=== PATIENT | male | born 1955 | race Caucasian/White ===

== ENCOUNTER 2017-01-17 20:38 | Inpatient (IN) | payer BC ==
[2017-01-17] MEDS ORDERED: Aspirin 81 MG Tab.Chew ONE (21:05)
[2017-01-17] MEDS ORDERED: Sodium Chloride 0.9% 5 ML Syringe FLUSH PRN (21:06)
[2017-01-17 21:35] LABS: CHLORIDE,CL 104 mmol/L (98-115); SODIUM,NA 141 mmol/L (136-145)
[2017-01-17] MEDS ORDERED: Diltiazem 25 MG/5 ML SDV IVPUSH ONE (21:49)
[2017-01-17] MEDS ORDERED: Enoxaparin 40 MG/0.4 ML Syringe SUBCUT ONE (22:08)
--- NOTE | 2017-01-17 22:12 | EDM.PDOC ---
ED HISTORY OF PRESENT ILLNESS - General Chief Complaint: Chest Pain Stated Complaint: RAPID HEART RATE Time Seen by Provider: 01/17/17 21:00 Source of Information: Reports: Patient History Limitations: Reports: No limitations - History of Present Illness INITIAL COMMENTS - FREE TEXT/NARRATIVE: PT STATES HE WAS SEEN ON TUESDAY AT [facility] FOR EPIGASTRIC DISCOMFORT. EKG PERFORMED AND PT GIVEN PRILOSEC FOR GERD. SAT AND TUESDAY HE FELT WEAK AND SOB WITH EXERTION. THIS EVENING FELT LIKE HIS HEART WAS RACING SO PRESENTED TO ER. DENIES CP, BUSTAMANTE, N/V/D, URI SYMPTOMS, OR FEVER. Symptom Onset Date: 01/17/17 Timing/Duration: Reports: Hour(s): Severity: mild Location, General: Reports: chest Improves with: Reports: None Worsens with: Reports: Movement Context, General: Reports: Activity Associated Symptoms (General): Reports: shortness of breath Treatments OPERATOR CONTROL ROOM: Reports: Aspirin - Related Data Allergies/ADRs: Allergies Allergy/AdvReac Type Severity Reaction Status Date / Time No Known Drug Allergies Allergy Cannot Verified 01/17/17 20:50 Remember Home Meds: Home Meds Omeprazole Magnesium [Prilosec Otc] 20 mg PO DAILY 01/17/17 [History] Social & Family History - Tobacco Use Smoking Status *Q: Never Smoker Second Hand Smoke Exposure: No - Caffeine Use Caffeine Use: Reports: Coffee - Recreational Drug Use Recreational Drug Use: No ED ROS GENERAL - Review of Systems Review Of Systems: ROS reveals no pertinent complaints other than HPI. Constitutional: Reports: no symptoms HEENT: Reports: No symptoms Respiratory: Reports: shortness of breath Cardiovascular: Reports: Palpitations Endocrine: Reports: no symptoms GI/Abdominal: Reports: No symptoms : Reports: no symptoms Musculoskeletal: Reports: no symptoms Skin: Reports: no symptoms Neurological: Reports: no symptoms Psychiatric: Reports: No symptoms Hematologic/Lymphatic: Reports: no symptoms Immunologic: Reports: no symptoms ED EXAM, GENERAL - Physical Exam Exam: See Below Exam Limited By: No limitations General Appearance: alert, WD/WN, no apparent distress Eye Exam: bilateral eye: normal inspection Nose: normal inspection, normal mucosa, no blood Throat/Mouth: Normal inspection, Normal oropharynx, No airway compromise Head: atraumatic, normocephalic Neck: normal inspection, supple, non-tender Respiratory/Chest: no respiratory distress, lungs clear, normal breath sounds, no accessory muscle use, chest non-tender Cardiovascular: tachycardia. No: irregularly irregular GI/Abdominal: normal bowel sounds, soft, non tender, no abnormal bruit, no mass Back Exam: normal inspection. No: CVA tenderness (L), CVA tenderness (R) Extremities: normal inspection, no pedal edema Neurological: alert, oriented, CN II-XII intact, normal cognition, no motor/ sensory deficits Psychiatric: normal affect, normal mood Skin Exam: Warm, Dry, Intact, Normal color, No rash Lymphatic: no adenopathy ED CARDIOLOGY PROCEDURES - Additional/Other Procedure(s) Other (Free Text) Procedure(s): CAROTID MASSAGE WAS PERFORMED X 2. EACH TIME HR WENT FROM 140'S TO 70'S BUT RETURNED TO 140'S WITHIN 20 SECONDS EKG INTERPRETATION EKG Date: 01/17/17 Time: 21:15 Rhythm: other (TACHYCARDIA) Rate (beats/min): 146 QRS: wide Comparison: change from previous EKG EKG Interpretation Comments: SUSPECTED UNDERLYING ATRIAL FLUTTER Course - Vital Signs Last Recorded V/S: Last Vital Signs Temp 97.5 F 01/17/17 20:45 Pulse 145 H 01/17/17 21:19 Resp 14 01/17/17 21:19 BP 133/92 H 01/17/17 21:19 Pulse Ox 96 01/17/17 21:19 - Orders/Labs/Meds Orders: Active Orders 24 hr Category Date Time Status EKG Documentation Completion [RC] ASDIRECTED Care 01/17/17 21:06 Active Chest 1V Frontal [CR] Stat Exams 01/17/17 20:53 Taken CMP [COMPREHENSIVE METABOLIC PN,CMP] [CHEM] Stat Lab 01/17/17 20:55 Received INR,PT,PROTHROMBIN TIME [COAG] Stat Lab 01/17/17 20:55 Received MAGNESIUM [CHEM] Stat Lab 01/17/17 20:55 Received PTT,PARTIAL THROMBOPLSTIN TIME [COAG] Stat Lab 01/17/17 20:55 Received TROPONIN I [CHEM] Stat Lab 01/17/17 20:55 Received Sodium Chloride 0.9% [Syrex Flush] Med 01/17/17 21:06 Active 5 ml FLUSH Q8HR PRN Saline Lock Insert [OM.PC] Routine Oth 01/17/17 20:50 Ordered EKG 12 Lead [EK] Routine Ther 01/17/17 21:05 Ordered Medication Orders Sodium Chloride (Syrex Flush) 5 ml FLUSH Q8HR PRN PRN Reason: Keep Vein Open Labs: Laboratory Tests 01/17/17 Range/Units 20:55 WBC 3.1 L (5.0-10.0) 10^3/uL RBC 5.07 (4.50-6.00) 10^6/uL Hgb 14.8 (13.0-17.0) g/dL Hct 44.4 (40.0-52.0) % MCV 87.5 (82.0-92.0) fL MCH 29.1 (27.0-31.0) pg MCHC 33.3 (32.0-36.0) g/dL RDW 12.3 (11.5-14.5) % Plt Count 349 H (150-300) 10^3/uL MPV 7.3 L (7.4-10.4) fL Neut % (Auto) 37.7 L (50.0-70.0) % Lymph % (Auto) 41.9 H (20.0-40.0) % [place] % (Auto) 16.5 H (2.0-8.0) % Eos % (Auto) 3.0 (1.0-3.0) % Baso % (Auto) 0.9 (0.0-1.0) % Neut # 1.2 L (2.5-7.0) 10^3/uL Lymph # 1.3 (1.0-4.0) 10^3/uL [place] # 0.5 (0.1-0.8) 10^3/uL Eos # 0.1 (0.1-0.3) 10^3/uL Baso # 0.0 (0.0-0.1) 10^3/uL Meds: Medications Generic Name Dose Route Start Last Admin Trade Name Freq PRN Reason Stop Dose Admin Sodium Chloride 5 ml 01/17/17 21:06 Syrex Flush FLUSH Q8HR PRN Keep Vein Open Discontinued Medications Generic Name Dose Route Start Last Admin Trade Name Freq PRN Reason Stop Dose Admin Aspirin Confirm 01/17/17 21:05 Aspirin Administered 01/17/17 21:06 Dose 324 mg .ROUTE .STK-MED ONE - Radiology Interpretation Free Text/Narrative:: CXR NEGATIVE FOR ACUTE PROCESS - Re-Assessments/Exams Free Text/Narrative Re-Assessment/Exam: 01/17/17 22:[address] CABRAL, TO[facility] CUTTER PINION AT [facility]. HE VIEWED ECG'S AND SUGGESTED DILTIAZEM FOR RATE CONTROL. DISCUSSED CASE WITH DR COELLO, WILL ADMIT INPATIENT TO HIS SERVICE Departure - Departure Time of Disposition: 22:23 Disposition: Admitted As Inpatient 65 Condition: fair Clinical Impression: Tachycardia with heart rate 141-160 beats per minute, Atrial flutter by electrocardiogram Forms: ED Department Discharge - My Orders Last 24 Hours: My Active Orders 01/17/17 20:50 Saline Lock Insert [OM.PC] Routine 01/17/17 20:53 Chest 1V Frontal [CR] Stat 01/17/17 20:55 CMP [COMPREHENSIVE METABOLIC PN,CMP] [CHEM] Stat INR,PT,PROTHROMBIN TIME [COAG] Stat MAGNESIUM [CHEM] Stat PTT,PARTIAL THROMBOPLSTIN TIME [COAG] Stat TROPONIN I [CHEM] Stat 01/17/17 21:05 EKG 12 Lead [EK] Routine 01/17/17 21:06 EKG Documentation Completion [RC] ASDIRECTED Sodium Chloride 0.9% [Syrex Flush] 5 ml FLUSH Q8HR PRN - Assessment/Plan Last 24 Hours: My Active Orders 01/17/17 20:50 Saline Lock Insert [OM.PC] Routine 01/17/17 20:53 Chest 1V Frontal [CR] Stat 01/17/17 20:55 CMP [COMPREHENSIVE METABOLIC PN,CMP] [CHEM] Stat INR,PT,PROTHROMBIN TIME [COAG] Stat MAGNESIUM [CHEM] Stat PTT,PARTIAL THROMBOPLSTIN TIME [COAG] Stat TROPONIN I [CHEM] Stat 01/17/17 21:05 EKG 12 Lead [EK] Routine 01/17/17 21:06 EKG Documentation Completion [RC] ASDIRECTED Sodium Chloride 0.9% [Syrex Flush] 5 ml FLUSH Q8HR PRN Assessment:: ATRIAL FIBRILLATION Plan: ADMIT INPATIENT
[2017-01-17] MEDS ORDERED: Metoprolol Tartrate 25 MG Tab PO ONE ×2 (22:15→23:05)
[2017-01-17] MEDS ORDERED: Diltiazem 125 MG in Sodium Chloride 0.9% 100 ML IV SCH (22:15)
[2017-01-18] MEDS ORDERED: Omeprazole 20 MG Cap.CR PO SCH (09:00)
[2017-01-18] MEDS ORDERED: Atropine 0.1 MG/ML 10 ML Syringe IVPUSH PRN (10:03)
[2017-01-18] MEDS ORDERED: EPINEPHrine 1:10,000 1 MG/10 ML Syringe IVPUSH PRN (10:03)
[2017-01-18] MEDS ORDERED: Lidocaine 2% 100 MG/5 ML Syringe IVPUSH PRN (10:03)
[2017-01-18] MEDS ORDERED: Nitroglycerin 0.4 MG Tab.SL SL PRN (10:03)
--- NOTE | 2017-01-18 11:24 | PCM.HP ---
H&P History of Present Illness - General Date of Service: 01/18/17 Source of Information: Patient, Old records, Significant Other History Limitations: Reports: No limitations - History of Present Illness Initial Comments - Free Text/Narative: This 61-year-old gentleman was admitted through the emergency department last night due to her rapid heart rate. He states he was recently seen in [facility] to some GI epigastric discomfort and was recently placed on PPI therapy for this for possible GERD. The patient's symptoms initially began with having some pressure or pain on the left side of his neck which seemed to move down into his epigastric stomach causing him an ache worse when he bent over that does not seem to be relieved by rest and he also has had a loss of appetite. Yesterday he states he was doing some light work shoveling some light snow and help and some son move some lumbar then he noticed he was quite short of breath and easily fatigued and he took his heart rate and he states his heart rate was in the 140s. He took a total of 162 mg of aspirin yesterday because he thought he was having a heart attack. Patient states he is generalize healthy and up to recently he has not seen a physician or any medical care for about 10 years. He has not been on any medication until he was recently placed on Prilosec. He states he has no family history of any cardiac issues (however does have RBBB--chronic) other than cancer in the stomach in his father. He denied any chest pains headaches nausea vomiting or diarrhea or recent cold-like symptoms. Patient's workup in the ED did include EKG which initially showed atrial fibrillation with rapid ventricular response around 140 last night which responded to both IV and oral calcium channel blockers and metoprolol eventually converting him into a sinus rhythm. Chest x-ray shows no edema or pneumonia. He was placed in CCU throughout the night on telemetry. Epigastric Pain Score (Numeric/FACES): 1 - Related Data Allergies/Adverse Reactions: Allergies Allergy/AdvReac Type Severity Reaction Status Date / Time No Known Drug Allergies Allergy Cannot Verified 01/17/17 20:50 Remember Home Medications: Home Meds Omeprazole Magnesium [Prilosec Otc] 20 mg PO DAILY 01/17/17 [History] Past Medical History Cardiovascular History: Reports: Other (see below) Other Cardiovascular History: 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 Gastrointestinal History: Reports: GERD, Other (see below) Other Gastrointestinal History: med for it for past 2 days - Past Surgical History Cardiovascular Surgical History: Reports: None Social & Family History - Family History HEENT: Reports: None Cardiac: Reports: None Respiratory: Reports: None GI: Reports: None : Reports: None OBGYN: Reports: None Musculoskeletal: Reports: None Neurological: Reports: None Psychiatric: Reports: None Endocrine/Metabolic: Reports: None Hematologic: Reports: None Immunologic: Reports: None Dermatologic: Reports: None Oncologic: Reports: Other (see below) (Her father of GI cancer) - Tobacco Use Smoking Status *Q: Never Smoker Second Hand Smoke Exposure: No - Caffeine Use Caffeine Use: Reports: Coffee - Recreational Drug Use Recreational Drug Use: No H&P Review of Systems - Review of Systems: Review Of Systems: See Below General: Reports: decreased appetite. Denies: weight loss HEENT: Reports: no symptoms Pulmonary: Denies: Pleuritic Chest Pain Cardiovascular: Reports: no symptoms Gastrointestinal: Reports: Decreased appetite, Other (mild epigastic pain). Denies: Diarrhea, Difficulty swallowing Genitourinary: Reports: no symptoms Musculoskeletal: Reports: no symptoms Skin: Reports: no symptoms Psychiatric: Reports: no symptoms Neurological: Reports: No Symptoms Hematologic/Lymphatic: Reports: no symptoms Immunologic: Reports: no symptoms Exam - Exam Exam: See Below - Vital Signs Vital Signs: Last Vital Signs Temp 97.3 F 01/18/17 07:00 Pulse 55 L 01/18/17 07:00 Resp 18 01/18/17 07:00 BP 105/60 01/18/17 07:00 Pulse Ox 97 01/18/17 07:00 Weight: 158 lb 6.4 oz - Exam Quality Assessment: No: supplemental oxygen General: alert, oriented, 4 HEENT: Hearing intact, Mucosa moist & pink Neck: supple, trachea midline, 2 Lungs: Clear to auscultation, Normal respiratory effort Cardiovascular: normal S1, normal S2, bradycardia. No: irregular rhythm Abdomen: normal bowel sounds, soft (Male) Exam: Deferred Rectal (Males) Exam: Deferred Back Exam: No: CVA tenderness (L), CVA tenderness (R) Extremities: normal pulses. No: edema Peripheral Pulses: 2+: radial (R), femoral (L) Skin: warm, dry, intact Neurological: cranial nerves intact, reflexes equal bilateral Neuro Extensive - Mental Status: alert, oriented x3, normal mood/affect, normal cognition Neuro Extensive - Motor, Sensory, Reflexes: CN II-XII intact, normal gait, normal reflexes Psychiatric: alert, normal affect, normal mood - Patient Data Lab Results last 24 hrs: Laboratory Results - last 24 hr 01/18/17 Range/Units 08:40 Troponin I 0.11 H* (0.00-0.070) ng/mL Result Diagrams: 01/17/17 20:55 01/17/17 20:55 *Q Meaningful Use (ADM) - VTE *Q VTE Criteria *Q: - Stroke *Q Stroke Criteria *Q: - AMI *Q AMI Criteria *Q: Problem List Initiated/Reviewed/Updated: Yes Orders Last 24hrs: Active Orders 24 hr Category Date Time Status EKG Documentation Completion [RC] ASDIRECTED Care 01/18/17 08:28 Active EKG Documentation Completion [RC] ASDIRECTED Care 01/18/17 09:28 Active Regular Diet [DIET] Diet 01/18/17 Breakfast Active Atropine [Atropine 0.1 MG/ML] Med 01/18/17 10:03 Active 0 mg IVPUSH ASDIRECTED PRN EPINEPHrine [EPINEPHrine 1:10,000] Med 01/18/17 10:03 Active 1 mg IVPUSH ASDIRECTED PRN Lidocaine 2% [Xylocaine 2%] Med 01/18/17 10:03 Active 0 mg IVPUSH ASDIRECTED PRN Nitroglycerin [Nitrostat] Med 01/18/17 10:03 Active 0.4 mg SL ASDIRECTED PRN Omeprazole Med 01/18/17 09:00 Active 20 mg PO ACBREAKFAST EKG 12 Lead [EK] Routine Ther 01/18/17 09:27 Ordered EKG 12 Lead [EK] Urgent Ther 01/18/17 08:27 Ordered Medication Orders Atropine Sulfate (Atropine 0.1 Mg/Ml) 0 mg IVPUSH ASDIRECTED PRN PRN Reason: Heart Epinephrine HCl (Epinephrine 1:10,000) 1 mg IVPUSH ASDIRECTED PRN PRN Reason: Heart Lidocaine HCl (Xylocaine 2%) 0 mg IVPUSH ASDIRECTED PRN PRN Reason: Heart Nitroglycerin (Nitrostat) 0.4 mg SL ASDIRECTED PRN PRN Reason: Heart Omeprazole (Omeprazole) 20 mg PO ACBREAKFAST [facility] Last Admin: 01/18/17 08:54 Dose: 20 mg Sodium Chloride (Syrex Flush) 5 ml FLUSH Q8HR PRN PRN Reason: Keep Vein Open Assessment/Plan Comment:: HISTORY OF PRESENT ILLNESS This 61-year-old gentleman was admitted through the emergency department last night due to her rapid heart rate. He states he was recently seen in [facility] do to some GI epigastric discomfort and was recently placed on PPI therapy for this for possible GERD. The patient's symptoms initially began with having some pressure or pain on the left side of his neck which seemed to move down into his epigastric stomach causing him an ache worse when he bent over that does not seem to be relieved by rest and he also has had a loss of appetite. Yesterday he states he was doing some light work shoveling some light snow and help and some son move some lumbar then he noticed he was quite short of breath and easily fatigued and he took his heart rate and he states his heart rate was in the 140s. He took a total of 162 mg of aspirin yesterday because he thought he was having a heart attack. Patient states he is generalize healthy and up to recently he has not seen a physician or any medical care for about 10 years. He has not been on any medication until he was recently placed on Prilosec. He states he has no family history of any cardiac issues (however does have RBBB--chronic) other than cancer in the stomach in his father. He denied any chest pains headaches nausea vomiting or diarrhea or recent cold-like symptoms. Patient recently cut down tremendously on his caffeine intake as he was taking quite a bit of caffeine up until most recently due to GI symptoms. Patient's workup in the ED did include EKG which initially showed atrial fibrillation with rapid ventricular response around 140 last night which responded to both IV and oral calcium channel blockers and metoprolol eventually converting him into a sinus rhythm. Chest x-ray shows no edema or pneumonia. He was placed in CCU throughout the night on telemetry. Recent labs include, BMP normal, Lipids normal, hepatitis C antibody is nonreactive CODE STATUS full code Impression/plan Paroxysmal atrial fibrillation, chemically converted to sinus bradycardia right bundle branch block, Myocardial infarction, non-STEMI, non-Q wave, slight elevation in cardio biomarkers, place on heparin drip. 81 mg aspirin today, although MARTHA 1/7--risk low however since patient is relatively young age with exertional atrial fibrillation with elevated cardio biomarkers cardiology suggest further studying. He will be transferred to [facility] today. Excessive caffeine intake, on PPI therapy, recently stopped drinking coffee GI stress prophylaxis, continue with PPI therapy.
--- NOTE | 2017-01-18 12:16 | PCM.DCSUM1 ---
Discharge Summary - Hospital Course Brief History: This 61-year-old gentleman was admitted through the emergency department last night due to her rapid heart rate. He states he was recently seen in [facility] to some GI epigastric discomfort and was recently placed on PPI therapy for this for possible GERD. The patient's symptoms initially began with having some pressure or pain on the left side of his neck which seemed to move down into his epigastric stomach causing him an ache worse when he bent over that does not seem to be relieved by rest and he also has had a loss of appetite. Yesterday he states he was doing some light work shoveling some light snow and help and some son move some lumbar then he noticed he was quite short of breath and easily fatigued and he took his heart rate and he states his heart rate was in the 140s. He took a total of 162 mg of aspirin yesterday because he thought he was having a heart attack. Patient states he is generalize healthy and up to recently he has not seen a physician or any medical care for about 10 years. He has not been on any medication until he was recently placed on Prilosec. He states he has no family history of any cardiac issues (however does have RBBB--chronic) other than cancer in the stomach in his father. He denied any chest pains headaches nausea vomiting or diarrhea or recent cold-like symptoms. Patient's workup in the ED did include EKG which initially showed atrial fibrillation with rapid ventricular response around 140 last night which responded to both IV and oral calcium channel blockers and metoprolol eventually converting him into a sinus rhythm. Chest x-ray shows no edema or pneumonia. He was placed in CCU throughout the night on telemetry. - Discharge Data Discharge Date: 01/18/17 Discharge Disposition: DC/Tfer to Acute Hospital 02 Condition: Good - Patient Summary/Data Complications: After converting to sinus bradycardia he had no other ectopy during the night. He remained on telemetry however his only complication was slightly elevated troponin. Denies chest pain Hospital Course: Patient was chemically converted to sinus bradycardia and had an uneventful night last night on the floor without any ectopy on telemetry. He had no chest pain no nausea or vomiting. EKG does show sinus bradycardia right bundle branch block however the right bundle branch block is chronic for him. Troponin slightly elevated at 0.11. He was given Lovenox 40 mg times one last night in the ED. - Discharge Plan Home Medications: Home Meds Omeprazole Magnesium [Prilosec Otc] 20 mg PO DAILY 01/17/17 [History] - Discharge Summary/Plan Comment DC Time >30 min.: Yes Discharge Summary/Plan Comment: Final diagnoses, Myocardial infarction, non-STEMI. Elevated cardio biomarkers. Proximal atrial fibrillation, now sinus bradycardia. GERD, recent diagnosed in recent PPI therapy Patient will be transferred to a higher level of care for further diagnostic studies. Heparin drip started 12 units per kilo hour--no bolus. 81 mg aspirin x1 now. I spoke with cardiology and hospitalist Anibal 1 call and they do agree for transfer. - Patient Data Vitals - Most Recent: Last Vital Signs Temp 97.3 F 01/18/17 07:00 Pulse 55 L 01/18/17 07:00 Resp 18 01/18/17 07:00 BP 105/60 01/18/17 07:00 Pulse Ox 97 01/18/17 07:00 Weight - Most Recent: 158 lb 6.4 oz I&O - Last 24 hours: Intake & Output 01/17/17 01/18/17 01/18/17 22:59 06:59 14:59 Intake Total 60 Output Total 500 Balance -440 Lab Results - Last 24 hrs: Laboratory Results - last 24 hr 01/18/17 Range/Units 08:40 Troponin I 0.11 H* (0.00-0.070) ng/mL Med Orders - Current: Current Medications Atropine Sulfate (Atropine 0.1 Mg/Ml) 0 mg IVPUSH ASDIRECTED PRN PRN Reason: Heart Epinephrine HCl (Epinephrine 1:10,000) 1 mg IVPUSH ASDIRECTED PRN PRN Reason: Heart Lidocaine HCl (Xylocaine 2%) 0 mg IVPUSH ASDIRECTED PRN PRN Reason: Heart Nitroglycerin (Nitrostat) 0.4 mg SL ASDIRECTED PRN PRN Reason: Heart Omeprazole (Omeprazole) 20 mg PO ACBREAKFAST [facility] Last Admin: 01/18/17 08:54 Dose: 20 mg Sodium Chloride (Syrex Flush) 5 ml FLUSH Q8HR PRN PRN Reason: Keep Vein Open Discontinued Medications Aspirin (Aspirin) Confirm Administered Dose 324 mg .ROUTE .STK-MED ONE Stop: 01/17/17 21:06 Last Admin: 01/17/17 23:37 Dose: Not Given Diltiazem HCl (Diltiazem) 10 mg IVPUSH ONETIME ONE Stop: 01/17/17 21:50 Last Admin: 01/17/17 23:46 Dose: 10 mg Enoxaparin Sodium (Lovenox) 40 mg SUBCUT ONETIME ONE Stop: 01/17/17 22:09 Last Admin: 01/17/17 22:22 Dose: 40 mg Diltiazem HCl 125 mg/ Sodium (Chloride) 125 mls @ 5 mls/hr IV TITRATE DAFNE PRN Reason: 5 MG/HR Metoprolol Tartrate (Lopressor) 12.5 mg PO ONETIME ONE Stop: 01/17/17 22:16 Last Admin: 01/17/17 22:22 Dose: 12.5 mg Metoprolol Tartrate (Lopressor) 12.5 mg PO ONETIME ONE Stop: 01/17/17 23:06 Last Admin: 01/17/17 23:50 Dose: 12.5 mg *Q Meaningful Use (DIS) - VTE *Q VTE Criteria *Q: - Stroke *Q Stroke Criteria *Q: - AMI *Q AMI Criteria *Q:
[2017-01-18] MEDS ORDERED: Heparin Sodium/D5W 25,000 UNITS/250 ML BAG IV SCH (12:30)
[2017-01-18 12:32] VITALS: BP 102/63
== END 2017-01-18 13:15 | DRG 190 ==
LOC: KA.ED 20:38 → KA.MS 22:25
PROVIDERS: ADMIT Internal Medicine; ATTEND Internal Medicine
DX: I21.4 Non-ST elevation (NSTEMI) myocardial infarction (principal); I48.91 Unspecified atrial fibrillation; K21.9 Gastro-esophageal reflux disease without esophagitis; I45.10 Unspecified right bundle-branch block; Z79.899 Other long term (current) drug therapy
CPT/HCPCS: 36415; 71010; 80053; 83735; 84484; 85025; 85610; 85730; 93005; 96372; 99285; A9270-GY; J1644; J1650; J3490

== ENCOUNTER 2018-02-14 01:36 | Inpatient (IN) | payer BC ==
[2018-02-14] MEDS ORDERED: Sodium Chloride 0.9% 5 ML Syringe FLUSH PRN (02:20)
[2018-02-14] MEDS ORDERED: Sodium Chloride 0.9% 1,000 ML IV ONE ×2 (02:47→04:57)
[2018-02-14] MEDS ORDERED: Ketorolac 30 MG/ML SDV IVPUSH ONE (02:47)
--- NOTE | 2018-02-14 02:55 | EDM.PDOC ---
ED HPI GENERAL MEDICAL PROBLEM - General Chief Complaint: Abdominal Pain Stated Complaint: abd pain Time Seen by Provider: 02/14/18 02:36 Source of Information: Reports: Patient History Limitations: Reports: No Limitations - History of Present Illness INITIAL COMMENTS - FREE TEXT/NARRATIVE: Patient presents with sharp pain in the left abdomen. He has had episodes of this for a month. He has seen his PCP twice with it and worked up with labs both times and US about ten days ago. He has started Prilosec and also tried Pepto-Bismol tonight. He denies N/V/D/C, bloody stools. This morning when he woke up the pain was quite bad but resolved through the morning and by noon was mostly gone. This evening after supper it became severe again. He has an appointment with his PCP tomorrow but couldn't wait with the pain so came to ER. He denies any kidney disease or problems. A year ago he had ablation for A Fib but no other history of surgeries. 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 Gastrointestinal History: Reports: GERD, Other (See Below) Other Gastrointestinal History: med for it for past 2 days - Past Surgical History Cardiovascular Surgical History: Reports: None Social & Family History - Family History HEENT: Reports: None Cardiac: Reports: None Respiratory: Reports: None GI: Reports: None : Reports: None OBGYN: Reports: None Musculoskeletal: Reports: None Neurological: Reports: None Psychiatric: Reports: None Endocrine/Metabolic: Reports: None Hematologic: Reports: None Immunologic: Reports: None Dermatologic: Reports: None Oncologic: Reports: Other (See Below) - Tobacco Use Smoking Status *Q: Never Smoker Second Hand Smoke Exposure: No - Caffeine Use Caffeine Use: Reports: Coffee - Recreational Drug Use Recreational Drug Use: No ED ROS GENERAL - Review of Systems Review Of Systems: See Below Constitutional: Denies: Fever, Chills, Malaise, Weakness HEENT: Denies: Ear Pain, Throat Pain, Vision Change Respiratory: Denies: Shortness of Breath, Cough Cardiovascular: Denies: Chest Pain, Lightheadedness, Syncope Endocrine: Denies: Fatigue GI/Abdominal: Reports: Abdominal Pain. Denies: Black Stool, Bloody Stool, Constipation, Diarrhea, Nausea, Vomiting : Denies: Dysuria, Flank Pain Musculoskeletal: Denies: Neck Pain, Shoulder Pain, Arm Pain, Back Pain Skin: Denies: Cyanosis, Jaundice, Mottled, Pallor, Diaphoresis Neurological: Denies: Confusion, Dizziness, Headache, Seizure, Syncope, Trouble Speaking, Difficulty Walking Psychiatric: Denies: Agitation, Anxiety, Confusion ED EXAM, GI/ABD - Physical Exam Exam: See Below Exam Limited By: No Limitations General Appearance: Alert, WD/WN, No Apparent Distress Eyes: Bilateral: Normal Appearance, EOMI Ears: Normal External Exam, Hearing Grossly Normal Nose: Normal Inspection, No Blood Throat/Mouth: Normal Inspection, Normal Lips, Normal Voice, No Airway Compromise Head: Atraumatic, Normocephalic Neck: Normal Inspection, Full Range of Motion Respiratory/Chest: No Respiratory Distress, Lungs Clear, Normal Breath Sounds, No Accessory Muscle Use Cardiovascular: Regular Rate, Rhythm, No Murmur GI/Abdominal Exam: Normal Bowel Sounds, Soft, No Organomegaly, No Distention, No Abnormal Bruit, No Mass, Tender (tender in left quadrant midway between upper and lower; not exacerbated by palpation but identified there.). No: Guarding, Rigid Back Exam: Normal Inspection, Full Range of Motion. No: CVA Tenderness (L), CVA Tenderness (R) Extremities: Normal Inspection, Normal Range of Motion Neurological: Alert, Oriented, Normal Cognition, No Motor/Sensory Deficits Psychiatric: Normal Affect, Normal Mood Skin Exam: Warm, Dry, Intact, Normal Color, No Rash Course - Vital Signs Last Recorded V/S: Last Vital Signs Temp 98.6 F 02/14/18 02:02 Pulse 76 02/14/18 02:02 Resp 18 02/14/18 02:02 BP 143/88 H 02/14/18 02:02 Pulse Ox 97 02/14/18 02:02 - Orders/Labs/Meds Orders: Active Orders 24 hr Category Date Time Status Peripheral IV Care [RC] . DIRECTED Care 02/14/18 02:21 Active Abdomen Pelvis w Cont [CT] Stat Exams 02/14/18 02:22 Taken Medication Orders Sodium Chloride (Normal Saline) 1,000 mls @ 500 mls/hr IV ASDIRECTED ONE Stop: 02/14/18 06:56 Non-Formulary Medication (Omeprazole Magnesium [Prilosec Otc]) 20 mg PO DAILY DAFNE Ondansetron HCl (Zofran) 4 mg IV Q4H PRN PRN Reason: Nausea/Vomiting Labs: Laboratory Tests 02/14/18 02/14/18 02/14/18 Range/Units 02:15 02:27 02:27 WBC 2.6 L (5.0-10.0) 10^3/uL RBC 4.83 (4.50-6.00) 10^6/uL Hgb 13.9 (13.0-17.0) g/dL Hct 42.1 (40.0-52.0) % MCV 87.0 (82.0-92.0) fL MCH 28.8 (27.0-31.0) pg MCHC 33.1 (32.0-36.0) g/dL RDW 12.4 (11.5-14.5) % Plt Count 274 D (150-300) 10^3/uL MPV 7.4 (7.4-10.4) fL Neut % (Auto) 47.5 L (50.0-70.0) % Lymph % (Auto) 45.6 H (20.0-40.0) % [place] % (Auto) 3.9 (2.0-8.0) % Eos % (Auto) 1.8 (1.0-3.0) % Baso % (Auto) 1.2 H (0.0-1.0) % Neut # (Auto) 1.2 L (2.5-7.0) 10^3/uL Lymph # (Auto) 1.3 (1.0-4.0) 10^3/uL [place] # (Auto) 0.1 (0.1-0.8) 10^3/uL Eos # (Auto) 0.0 L (0.1-0.3) 10^3/uL Baso # (Auto) 0.0 (0.0-0.1) 10^3/uL Sodium 141 (136-145) mmol/L Potassium 3.5 (3.3-5.3) mmol/L Chloride 106 (98-115) mmol/L Carbon Dioxide 27.2 (21.0-32.0) mmol/L BUN 17 (6-25) mg/dL Creatinine 0.88 (0.51-1.17) mg/dL Est Cr Clr Drug Dosing 83.13 mL/min Estimated GFR (MDRD) > 60 mL/min Glucose 113 H (70-110) mg/dL Calcium 8.9 (8.7-10.3) mg/dL Total Bilirubin 0.2 (0.2-1.0) mg/dL AST 25 (15-37) U/L ALT 31 (12-78) U/L Alkaline Phosphatase 67 (46-116) IU/L C-Reactive Protein (0.0-0.9) mg/dL Total Protein 7.3 (6.4-8.2) g/dL Albumin 3.97 (3.00-4.80) g/dL Lipase 2515 H (73-393) U/L Specimen Type Urincc Urine Color Yellow (YELLOW) Urine Appearance Clear (CLEAR) Urine pH 8.5 (5.0-9.0) Ur Specific [place] 1.020 (1.005-1.030) Urine Protein Negative (NEGATIVE) mg/dL Urine Glucose (UA) Negative (NEGATIVE) mg/dL Urine Ketones Negative (NEGATIVE) mg/dL Urine Occult Blood Negative (NEGATIVE) Urine Nitrite Negative (NEGATIVE) Urine Bilirubin Negative (NEGATIVE) Urine Urobilinogen 0.2 (0.2-1.0) E.U./dL Ur Leukocyte Esterase Negative (NEGATIVE) Urine RBC 0-5 /HPF Urine WBC Not seen /HPF Ur Epithelial Cells Rare /LPF Urine Bacteria Not seen (NONE TO FEW) /HPF Urine Mucus Rare H (NEGATIVE) /LPF 02/14/18 Range/Units 02:27 WBC (5.0-10.0) 10^3/uL RBC (4.50-6.00) 10^6/uL Hgb (13.0-17.0) g/dL Hct (40.0-52.0) % MCV (82.0-92.0) fL MCH (27.0-31.0) pg MCHC (32.0-36.0) g/dL RDW (11.5-14.5) % Plt Count (150-300) 10^3/uL MPV (7.4-10.4) fL Neut % (Auto) (50.0-70.0) % Lymph % (Auto) (20.0-40.0) % [place] % (Auto) (2.0-8.0) % Eos % (Auto) (1.0-3.0) % Baso % (Auto) (0.0-1.0) % Neut # (Auto) (2.5-7.0) 10^3/uL Lymph # (Auto) (1.0-4.0) 10^3/uL [place] # (Auto) (0.1-0.8) 10^3/uL Eos # (Auto) (0.1-0.3) 10^3/uL Baso # (Auto) (0.0-0.1) 10^3/uL Sodium (136-145) mmol/L Potassium (3.3-5.3) mmol/L Chloride (98-115) mmol/L Carbon Dioxide (21.0-32.0) mmol/L BUN (6-25) mg/dL Creatinine (0.51-1.17) mg/dL Est Cr Clr Drug Dosing mL/min Estimated GFR (MDRD) mL/min Glucose (70-110) mg/dL Calcium (8.7-10.3) mg/dL Total Bilirubin (0.2-1.0) mg/dL AST (15-37) U/L ALT (12-78) U/L Alkaline Phosphatase (46-116) IU/L C-Reactive Protein 0.3 (0.0-0.9) mg/dL Total Protein (6.4-8.2) g/dL Albumin (3.00-4.80) g/dL Lipase (73-393) U/L Specimen Type Urine Color (YELLOW) Urine Appearance (CLEAR) Urine pH (5.0-9.0) Ur Specific [place] (1.005-1.030) Urine Protein (NEGATIVE) mg/dL Urine Glucose (UA) (NEGATIVE) mg/dL Urine Ketones (NEGATIVE) mg/dL Urine Occult Blood (NEGATIVE) Urine Nitrite (NEGATIVE) Urine Bilirubin (NEGATIVE) Urine Urobilinogen (0.2-1.0) E.U./dL Ur Leukocyte Esterase (NEGATIVE) Urine RBC /HPF Urine WBC /HPF Ur Epithelial Cells /LPF Urine Bacteria (NONE TO FEW) /HPF Urine Mucus (NEGATIVE) /LPF Meds: Medications Generic Name Dose Route Start Last Admin Trade Name Freq PRN Reason Stop Dose Admin Sodium Chloride 1,000 mls @ 500 mls/hr 02/14/18 04:57 Normal Saline IV 02/14/18 06:56 ASDIRECTED ONE Non-Formulary Medication 20 mg 02/14/18 09:00 Omeprazole Magnesium [Prilosec Otc] PO DAILY DAFNE Ondansetron HCl 4 mg 02/14/18 04:57 Zofran IV Q4H PRN Nausea/Vomiting Discontinued Medications Generic Name Dose Route Start Last Admin Trade Name Freq PRN Reason Stop Dose Admin Sodium Chloride 1,000 mls @ 999 mls/hr 02/14/18 02:47 02/14/18 02:57 Normal Saline IV 02/14/18 03:47 999 mls/hr .BOLUS ONE Administration Sodium Chloride 50 mls @ 20 mls/hr 02/14/18 04:00 Normal Saline IV ASDIRECTED DAFNE Iopamidol 75 ml 02/14/18 03:51 Isovue-300 (61%) IV 02/14/18 03:52 ONETIME ONE Ketorolac Tromethamine 30 mg 02/14/18 02:47 02/14/18 02:55 Toradol IVPUSH 02/14/18 02:48 30 mg ONETIME ONE Administration Sodium Chloride 5 ml 02/14/18 02:20 02/14/18 02:45 Syrex Flush FLUSH 5 ml Q8HR PRN Administration Keep Vein Open - Re-Assessments/Exams Free Text/Narrative Re-Assessment/Exam: 02/14/18 04:22 Lipase is 2515, the rest of the labs are essentially normal. WBC is low which is his baseline apparently when comparing previous labs. Patient is comfortable and says pain is gone after the Toradol. Waiting on results from the CT. 02/14/18 04:58 CT shows acute pancreatitis. Discussed findings and treatment plan with patient and his . Also discussed with Mer Reyes NP who accepted for admission. Gave a liter of NS bolus in the ER and will continue NS 500 ml/ hr for at least the next 4 hours until reassessed during morning rounds. This hydration rate was per the UpToDate recommendation for acute pancreatitis. Patient is pain-free and has remained stable throughout ER course. Departure - Departure Time of Disposition: 04:57 Disposition: Admitted As Inpatient 65 Condition: Good Clinical Impression: Acute pancreatitis Qualifiers: Pancreatitis type: unspecified pancreatitis type Acute pancreatitis complication: unspecified Qualified Code(s): K85.90 - Acute pancreatitis without necrosis or infection, unspecified - Discharge Information - My Orders Last 24 Hours: My Active Orders 02/14/18 02:21 Peripheral IV Care [RC] . DIRECTED 02/14/18 02:22 Abdomen Pelvis w Cont [CT] Stat - Assessment/Plan Last 24 Hours: My Active Orders 02/14/18 02:21 Peripheral IV Care [RC] . DIRECTED 02/14/18 02:22 Abdomen Pelvis w Cont [CT] Stat
[2018-02-14 03:24] LABS: CHLORIDE,CL 106 mmol/L (98-115); SODIUM,NA 141 mmol/L (136-145)
[2018-02-14] MEDS ORDERED: Iopamidol 612 MG/ML 75 ML Bottle IV ONE (03:51)
[2018-02-14] MEDS ORDERED: Sodium Chloride 0.9% 50 ML IV SCH (04:00)
[2018-02-14] MEDS ORDERED: Ondansetron 4 MG/2 ML SDV IV PRN (04:57)
[2018-02-14] MEDS ORDERED: Sodium Chloride 0.9% 1,000 ML ONE (07:09)
[2018-02-14] MEDS: Omeprazole 20 MG Cap.CR PO SCH (07:11)
[2018-02-14] MEDS ORDERED: Sodium Chloride 0.9% 1,000 ML IV SCH (07:30)
[2018-02-14 07:47] LABS: CHLORIDE,CL 111 mmol/L (98-115); SODIUM,NA 146 mmol/L (136-145)
--- NOTE | 2018-02-14 09:20 | PCM.HP ---
H&P History of Present Illness - General Date of Service: 02/14/18 Admit Problem/Dx: Admission Diagnosis/Problem Admission Diagnosis/Problem Acute pancreatitis Source of Information: Patient, Old Records, RN History Limitations: Reports: No Limitations Left Abdominal Pain Score (Numeric/FACES): 6 - Related Data Allergies/Adverse Reactions: Allergies Allergy/AdvReac Type Severity Reaction Status Date / Time No Known Drug Allergies Allergy Cannot Verified 02/14/18 02:02 Remember Home Medications: Home Meds Omeprazole Magnesium [Prilosec Otc] 20 mg PO DAILY 01/17/17 [History] Past Medical History HEENT History: Reports: Impaired Vision, Other (See Below) Cardiovascular History: Reports: Other (See Below) Other Cardiovascular History: 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 Respiratory History: Reports: Other (See Below) Other Respiratory History: Asthma as a child Gastrointestinal History: Reports: GERD, Other (See Below) Other Gastrointestinal History: med for it for past 2 days Musculoskeletal History: Reports: Arthritis Neurological History: Reports: None - Infectious Disease History Infectious Disease History: Reports: Measles, Mumps - Past Surgical History HEENT Surgical History: Reports: Other (See Below) Other HEENT Surgeries/Procedures: scar removal on R eye Cardiovascular Surgical History: Reports: None Social & Family History - Family History HEENT: Reports: None Cardiac: Reports: None Respiratory: Reports: None GI: Reports: None : Reports: None OBGYN: Reports: None Musculoskeletal: Reports: None Neurological: Reports: None Psychiatric: Reports: None, Other (See Below) (Father alcohol abuse) Endocrine/Metabolic: Reports: Diabetes, type II (Mother had diabetes,) Hematologic: Reports: None Immunologic: Reports: None Dermatologic: Reports: None Oncologic: Reports: Breast, Other (See Below) (Mother breast cancer, father cancer colon and bladder, sister alive cancer, maternal grandfather maternal grandmother cancers unknown reason) - Tobacco Use Smoking Status *Q: Never Smoker Second Hand Smoke Exposure: No - Caffeine Use Caffeine Use: Reports: Coffee - Recreational Drug Use Recreational Drug Use: No H&P Review of Systems - Review of Systems: Review Of Systems: See Below General: Denies: Fever, Night Sweats, Diaphoresis, Decreased Appetite, Weight Loss HEENT: Reports: No Symptoms Pulmonary: Reports: No Symptoms Cardiovascular: Reports: No Symptoms Gastrointestinal: Reports: Abdominal Pain. Denies: Constipation, Diarrhea, Distension, Melena, Nausea, Vomiting Genitourinary: Reports: No Symptoms Musculoskeletal: Reports: No Symptoms Skin: Reports: No Symptoms Psychiatric: Reports: No Symptoms Neurological: Reports: No Symptoms Hematologic/Lymphatic: Reports: No Symptoms Immunologic: Reports: No Symptoms Exam - Exam Exam: See Below - Vital Signs Vital Signs: Last Vital Signs Temp 98.1 F 02/14/18 06:54 Pulse 59 L 02/14/18 06:54 Resp 16 02/14/18 06:54 BP 115/70 02/14/18 06:54 Pulse Ox 97 02/14/18 07:35 Weight: 160 lb 1 oz - Exam Quality Assessment: No: Supplemental Oxygen General: Alert, Oriented, Cooperative. No: Mild Distress HEENT: Other (Dry mucous membranes). No: Mucosa Moist & [place] Neck: Supple, Trachea Midline, 2 Lungs: Clear to Auscultation, Normal Respiratory Effort Cardiovascular: Regular Rate, Regular Rhythm GI/Abdominal Exam: Normal Bowel Sounds, Tender (Slight tenderness left upper and lower quadrant). No: Distended, Guarding, Rigid, Rebound, Mass, Splenomegaly (Male) Exam: Deferred Rectal (Males) Exam: Deferred Back Exam: No: CVA Tenderness (L), CVA Tenderness (R) Extremities: No Pedal Edema Peripheral Pulses: 2+: Radial (L), Radial (R) Skin: Warm, Dry, Intact Neurological: Cranial Nerves Intact, Reflexes Equal Bilateral Neuro Extensive - Mental Status: Alert, Oriented x3, Normal Mood/Affect, Normal Cognition Neuro Extensive - Motor, Sensory, Reflexes: CN II-XII Intact, Normal Gait, Normal Reflexes - Patient Data Lab Results Last 24 hrs: Laboratory Results - last 24 hr 02/14/18 02/14/18 02/14/18 Range/Units 02:15 02:27 02:27 WBC 2.6 L (5.0-10.0) 10^3/uL RBC 4.83 (4.50-6.00) 10^6/uL Hgb 13.9 (13.0-17.0) g/dL Hct 42.1 (40.0-52.0) % MCV 87.0 (82.0-92.0) fL MCH 28.8 (27.0-31.0) pg MCHC 33.1 (32.0-36.0) g/dL RDW 12.4 (11.5-14.5) % Plt Count 274 D (150-300) 10^3/uL MPV 7.4 (7.4-10.4) fL Neut % (Auto) 47.5 L (50.0-70.0) % Lymph % (Auto) 45.6 H (20.0-40.0) % [place] % (Auto) 3.9 (2.0-8.0) % Eos % (Auto) 1.8 (1.0-3.0) % Baso % (Auto) 1.2 H (0.0-1.0) % Neut # (Auto) 1.2 L (2.5-7.0) 10^3/uL Lymph # (Auto) 1.3 (1.0-4.0) 10^3/uL [place] # (Auto) 0.1 (0.1-0.8) 10^3/uL Eos # (Auto) 0.0 L (0.1-0.3) 10^3/uL Baso # (Auto) 0.0 (0.0-0.1) 10^3/uL Sodium 141 (136-145) mmol/L Potassium 3.5 (3.3-5.3) mmol/L Chloride 106 (98-115) mmol/L Carbon Dioxide 27.2 (21.0-32.0) mmol/L BUN 17 (6-25) mg/dL Creatinine 0.88 (0.51-1.17) mg/dL Est Cr Clr Drug Dosing 83.13 mL/min Estimated GFR (MDRD) > 60 mL/min Glucose 113 H (70-110) mg/dL Calcium 8.9 (8.7-10.3) mg/dL Total Bilirubin 0.2 (0.2-1.0) mg/dL AST 25 (15-37) U/L ALT 31 (12-78) U/L Alkaline Phosphatase 67 (46-116) IU/L C-Reactive Protein (0.0-0.9) mg/dL Total Protein 7.3 (6.4-8.2) g/dL Albumin 3.97 (3.00-4.80) g/dL Amylase (25-125) U/L Lipase 2515 H (73-393) U/L Specimen Type Urincc Urine Color Yellow (YELLOW) Urine Appearance Clear (CLEAR) Urine pH 8.5 (5.0-9.0) Ur Specific [place] 1.020 (1.005-1.030) Urine Protein Negative (NEGATIVE) mg/dL Urine Glucose (UA) Negative (NEGATIVE) mg/dL Urine Ketones Negative (NEGATIVE) mg/dL Urine Occult Blood Negative (NEGATIVE) Urine Nitrite Negative (NEGATIVE) Urine Bilirubin Negative (NEGATIVE) Urine Urobilinogen 0.2 (0.2-1.0) E.U./dL Ur Leukocyte Esterase Negative (NEGATIVE) Urine RBC 0-5 /HPF Urine WBC Not seen /HPF Ur Epithelial Cells Rare /LPF Urine Bacteria Not seen (NONE TO FEW) /HPF Urine Mucus Rare H (NEGATIVE) /LPF 02/14/18 02/14/18 02/14/18 Range/Units 02:27 07:10 07:10 WBC 2.5 L (5.0-10.0) 10^3/uL RBC 4.23 L (4.50-6.00) 10^6/uL Hgb 12.2 L D (13.0-17.0) g/dL Hct 37.1 L (40.0-52.0) % MCV 87.8 (82.0-92.0) fL MCH 28.9 (27.0-31.0) pg MCHC 32.9 (32.0-36.0) g/dL RDW 12.7 (11.5-14.5) % Plt Count 251 (150-300) 10^3/uL MPV 6.6 L (7.4-10.4) fL Neut % (Auto) 41.8 L (50.0-70.0) % Lymph % (Auto) 43.6 H (20.0-40.0) % [place] % (Auto) 12.2 H (2.0-8.0) % Eos % (Auto) 1.9 (1.0-3.0) % Baso % (Auto) 0.5 (0.0-1.0) % Neut # (Auto) 1.0 L (2.5-7.0) 10^3/uL Lymph # (Auto) 1.2 (1.0-4.0) 10^3/uL [place] # (Auto) 0.3 (0.1-0.8) 10^3/uL Eos # (Auto) 0.0 L (0.1-0.3) 10^3/uL Baso # (Auto) 0.0 (0.0-0.1) 10^3/uL Sodium 146 H (136-145) mmol/L Potassium 4.7 (3.3-5.3) mmol/L Chloride 111 (98-115) mmol/L Carbon Dioxide 26.7 (21.0-32.0) mmol/L BUN 15 (6-25) mg/dL Creatinine 0.81 (0.51-1.17) mg/dL Est Cr Clr Drug Dosing 90.31 mL/min Estimated GFR (MDRD) > 60 mL/min Glucose 96 (70-110) mg/dL Calcium 8.2 L (8.7-10.3) mg/dL Total Bilirubin 0.2 (0.2-1.0) mg/dL AST 21 (15-37) U/L ALT 24 (12-78) U/L Alkaline Phosphatase 54 (46-116) IU/L C-Reactive Protein 0.3 < 0.2 (0.0-0.9) mg/dL Total Protein 6.1 L (6.4-8.2) g/dL Albumin 3.23 (3.00-4.80) g/dL Amylase 134 H (25-125) U/L Lipase 1166 H (73-393) U/L Specimen Type Urine Color (YELLOW) Urine Appearance (CLEAR) Urine pH (5.0-9.0) Ur Specific [place] (1.005-1.030) Urine Protein (NEGATIVE) mg/dL Urine Glucose (UA) (NEGATIVE) mg/dL Urine Ketones (NEGATIVE) mg/dL Urine Occult Blood (NEGATIVE) Urine Nitrite (NEGATIVE) Urine Bilirubin (NEGATIVE) Urine Urobilinogen (0.2-1.0) E.U./dL Ur Leukocyte Esterase (NEGATIVE) Urine RBC /HPF Urine WBC /HPF Ur Epithelial Cells /LPF Urine Bacteria (NONE TO FEW) /HPF Urine Mucus (NEGATIVE) /LPF Result Diagrams: 02/15/18 07:20 02/15/18 07:20 Problem List Initiated/Reviewed/Updated: Yes Orders Last 24hrs: Active Orders 24 hr Category Date Time Status Intake and Output [RC] 0600,1400,2200 Care 02/14/18 04:57 Active Oxygen Therapy [RC] PRN Care 02/14/18 04:57 Active Peripheral IV Care [RC] . DIRECTED Care 02/14/18 02:21 Inactive Up ad Temitope [RC] DAILY Care 02/14/18 04:57 Active Vital Signs [RC] 0700,1100,1500,1900,2300,0300 Care 02/14/18 04:57 Active Nothing per Oral Now Diet [DIET] Diet 02/14/18 Breakfast Active Omeprazole Med 02/14/18 07:30 Active 20 mg PO ACBREAKFAST Ondansetron [Zofran] Med 02/14/18 04:57 Active 4 mg IV Q4H PRN Sodium Chloride 0.9% [Normal Saline] 1,000 ml Med 02/14/18 07:30 Active IV ASDIRECTED Resuscitation Status Routine Resus Stat 02/14/18 04:51 Ordered Medication Orders Sodium Chloride (Normal Saline) 1,000 mls @ 500 mls/hr IV ASDIRECTED [facility] Last Admin: 02/14/18 07:10 Dose: 500 mls/hr Omeprazole (Omeprazole) 20 mg PO ACBREAKFAST [facility] Last Admin: 02/14/18 07:11 Dose: 20 mg Ondansetron HCl (Zofran) 4 mg IV Q4H PRN PRN Reason: Nausea/Vomiting Assessment/Plan Comment:: HISTORY OF PRESENT ILLNESS 62-year-old gentleman was admitted very early this morning through the ED due to sharp pain in the left abdomen. He has had episodes of transient on and off abdominal pain that waxes and wanes for approximately one month. He has seen his PCP twice with it and worked up with labs both times and US about ten days ago. He has started Prilosec and also tried Pepto-Bismol tonight. He denies N/ V/D/C, bloody stools. Yesterday morning when he woke up the pain was quite bad but resolved through the morning and by noon was mostly gone--oddly somewhat alleviated by showering. Last night after supper it became severe again. He denies any kidney disease or problems. A year ago he had ablation for A Fib but no other history of surgeries. Patient denies EtOH use past 30 years Abdominal ultrasound, January 27, 2018 [facility] Common bile duct 4.2 mm, pancreas not well visualized, multiple hepatic cysts, gallbladder filling defect, small polyp, no mention of biliary sludge Pertinent ED findings Amylase 2515 Electrolytes normal Low white count Normal CT acute pancreatitis--nonnecrotic Negative for gallstones, common bile duct normal Afebrile Impression Pancreatitis, acute, non-necrotic, Likely idiopathic since no stones and no EtOH , normal common bile duct with no obstructing stone. Biliary etiology definitively cannot be ruled out. since white count low could be viral related-- will assess Tawanda-Wilson virus since patient is experiencing left-sided abdominal pain. Amylase trending down. Patient's pain is improving. On Toradol, will add morphine as needed. Anti-emetics, monitor electrolytes. Review EMR for lipids. Lipid profile good. Will assses for ERCP. Dehydration, change to LR at 200 mL per hour. Strict I&O. NPO, ice chips okay Hypocalcemia, pseudo
[2018-02-14] MEDS ORDERED: Morphine 2 MG/ML Syringe IVPUSH PRN (09:35)
[2018-02-14] MEDS: Lactated Ringers 1,000 ML IV SCH ×3 (10:26→21:01)
[2018-02-15] MEDS: Lactated Ringers 1,000 ML IV SCH ×2 (02:06→07:06)
[2018-02-15 07:16] VITALS: BP 112/71
[2018-02-15 08:03] LABS: CHLORIDE,CL 110 mmol/L (98-115); SODIUM,NA 145 mmol/L (136-145)
[2018-02-15] MEDS: Omeprazole 20 MG Cap.CR PO SCH (08:25)
--- NOTE | 2018-02-16 08:38 | DISCH ---
FINAL DIAGNOSIS: Pancreatitis, acute, non-necrotic, likely idiopathic. HISTORY: 62-year-old gentleman was admitted to the ED. He was complaining of some sharp in pain left abdomen. He had been having on and off pain for approximately one month, mainly in his left abdomen area. He has been having episodes of transient on and off abdominal pain, somewhat waxes and wanes. He has been worked up with labs and been seen by his PCP, had ultrasounds about 10 days prior, which showed a normal common bile duct, 4.2 mm. However, the pancreas was not well-visualized. He did have multiple hepatic cysts, gallbladder filling defect with small polyps. However, there was no mention of any biliary sludge. He has been taking PPI. He also tried some Pepto-Bismol the night prior with very minimal effects. When he was admitted, he had no nausea, vomiting, or diarrhea. He denied any bloody stools. He said he woke up the morning prior with pain, quite bad, but resolved throughout the morning, and by noon it was almost gone, oddly it was somewhat alleviated by showering. He states likely just got his mind off his pain. The night before he had supper, after supper became quite bad. He denied any kidney disease or problems. About a year ago, he did have ablation for atrial fibrillation, however, no other history of surgeries. He denies any ETOH use the past 30 years. Per the ED findings included elevated amylase of 2500. Electrolytes were normal. He did have a low white count. Apparently, this is chronic for him. He has never been worked up for that. Abdominal CT showed acute pancreatitis, non-necrotic, negative for gallstones. Common bile duct was normal. He was afebrile. HOSPITAL COURSE: Hospital course went well, there were no complications. He never became hemodynamically unstable. No antibiotics were started, was non- necrotic. We felt like it was likely idiopathic. He was given aggressive IV fluids through the ED. I did change it to lactated Ringer's. He had good urinary output. He was afebrile. His pain was controlled on minimal Toradol. We advanced diet, initially kept him n.p.o. We did advance to clears. He had no vomiting. Electrolytes were monitored, normal. His lipid profile was very favorable. He was slightly dehydrated on admission. We kept him strict intake and output. He did have some slight low calcium level, however, corrected with albumin level. T max in the hospital was 98.8. His abdominal pain somewhat shifted. He had some left-sided abdominal pain early on, however, on mid day, it was somewhat shifted to the mid paraumbilical, and then on discharge, it was completely normal. PHYSICAL EXAMINATION: VITAL SIGNS: On discharge, temperature 98.8, heart rate 64 and regular, blood pressure 112/71, respiratory rate 16, and O2 saturation 96% on room air. LUNGS: Clear to auscultation. He tolerated his clear liquid diet. GI: Good bowel tones. Nontender to the abdomen. No distention. MICROBIOLOGY: None. LABORATORY DATA: White count 2.2, hemoglobin 12.4, and hematocrit 38.5. Neutrophils percentage at low 43%. Sodium, potassium, BUN, and creatinine were normal. Calcium 8.4, albumin 3.23, normal. Amylase 64, lipase 345, it was normal. Liver functions were normal. C-reactive protein was less than 0.2. MEDICATIONS: New medications on discharge; Toradol 10 mg q.6 hours p.r.n. for abdominal pain, Zofran for nausea. CONDITION ON DISCHARGE: The patient's condition is good. He will be discharged back home. He will receive ultrasound of the gallbladder at the [facility] at 3 o'clock today. He will be n.p.o. for that. He will follow up with Dr. Noyola next week. I did discuss possible referrals for Dr. Chawla, will see on followup. He was instructed low fat diet would be best for him at this time, stay well hydrated, no fatty foods. The patient is to report any increase in abdominal pain, fever, or vomiting. /[id number]/MODL
== END 2018-02-15 10:50 | disposition home or self-care (01) | DRG 282 ==
LOC: KA.ED 01:36 → KA.MS 04:42
PROVIDERS: ADMIT Nurse Practitioner Family; ATTEND Family Medicine
DX: K85.00 Idiopathic acute pancreatitis without necrosis or infection (principal); E83.51 Hypocalcemia; E86.0 Dehydration; K21.9 Gastro-esophageal reflux disease without esophagitis; M19.90 Unspecified osteoarthritis, unspecified site; I45.4 Nonspecific intraventricular block; Z79.899 Other long term (current) drug therapy
CPT/HCPCS: 36415; 74177; 80048; 80053; 81001; 82150; 83690; 85025; 86140; 86663; 86664; 86665; 96374; 99284; A9270-GY; J1885; J7030; J7050; J7120; Q9967

== ENCOUNTER 2024-05-18 20:24 | Emergency (ER) | payer MEDICARE, BC ==
[2024-05-18 20:50] VITALS: BP 108/64; PULSE 76
[2024-05-18 21:27] LABS: INFLUENZA A NAA NEGATIVE (NEGATIVE); INFLUENZA B NAA NEGATIVE (NEGATIVE); RESPIRATORY SYNCYTIAL VIR NAA NEGATIVE (NEGATIVE); STREP A BY PCR NOT DETECTED (NOT DETECT)
[2024-05-18 21:28] LABS: CORONAVIRUS COVID-19 NAA NEGATIVE (NEGATIVE)
== END 2024-05-18 21:47 | disposition home or self-care (01) ==
LOC: KA.ED 20:24
DX: J06.9 Acute upper respiratory infection, unspecified (principal)
CPT/HCPCS: 0241U; 87651-QW; 99283